=== PATIENT | male | born 2000 | race Caucasian/White ===

== ENCOUNTER 2020-09-12 07:35 | Day surgery (SDC) | payer MEDICAID, SELFPAY ==
[~2020-09-12] VITALS: Ht 182.9 cm; Wt 63.5 kg
[2020-09-12] MEDS ORDERED: MEPERIDINE HCL/PF 100 MG/ML AMP ONE (08:33)
[2020-09-12] MEDS ORDERED: SIMETHICONE 40 MG/0.6 ML ML ONE (08:33)
[2020-09-12] MEDS ORDERED: MIDAZOLAM HCL 5 MG/5 ML VIAL ONE ×2 (08:33→09:30)
[2020-09-12] MEDS ORDERED: DIPHENHYDRAMINE INJ 50 MG/ML VIAL ONE (10:11)
[2020-09-12 12:07] VITALS: BP_SYST 112
== END 2020-09-12 11:25 | disposition home or self-care (01) ==
LOC: SDS 07:35 → SMU 07:35 → SDS 11:25
PROVIDERS: ATTEND Internal Medicine Gastroenterology
DX: R63.4 Abnormal weight loss (principal); K44.9 Diaphragmatic hernia without obstruction or gangrene; K29.70 Gastritis, unspecified, without bleeding; K29.80 Duodenitis without bleeding; K64.8 Other hemorrhoids; Z79.899 Other long term (current) drug therapy; Z20.828 Contact with and (suspected) exposure to other viral communicable diseases
CPT/HCPCS: 36415; 43239; 45378; 87081; 88305; 88312; 88313; 96365; 99152; 99153; G0378; J1200; J2175; J2250; J7030; U0003